=== PATIENT | female | born 1965 | race Caucasian/White ===

== ENCOUNTER 2017-06-30 02:29 | Emergency (ER) | payer MEDICAID ==
[2017-06-30 02:52] VITALS: RESP 16; O2SAT 100
[2017-06-30] MEDS ORDERED: DiphenhydrAMINE 50 mg/ml Inj IM STA (02:56)
[2017-06-30] MEDS ORDERED: DiphenhydrAMINE 50 mg/ml Inj ONE (03:02)
--- NOTE | 2017-06-30 03:21 | C.PDOC ---
History Of Present Illness Patient is a 51 y/o female who presents to the ED with a complaint of a generalized rash on her body for approximately one month. Patient states rash has intermittent outbreaks; PMD prescribed medication to no relief about a month ago. Patient notes itching worsens severely at night. Patient denies allergens, fever, or recent travel. No other complaints at this time. Time Seen by Provider: 06/30/17 02:56 Chief Complaint (Nursing): Abnormal Skin Integrity History Per: Patient History/Exam Limitations: no limitations Onset/Duration Of Symptoms: Days (symptoms began approximately one month ago. ) , Intermittent Episodes Current Symptoms Are (Timing): Still Present Quality Of Symptoms: Itching Recent travel outside of the [place]: No Past Medical History Reviewed: Historical Data, Nursing Documentation, Vital Signs Vital Signs: Last Vital Signs Temp 98 F 06/30/17 03:25 Pulse 100 H 06/30/17 03:25 Resp 16 06/30/17 03:25 BP 112/71 06/30/17 03:25 Pulse Ox 100 06/30/17 03:43 - Medical History PMH: No Chronic Diseases Denies: Chronic Kidney Disease Other Surgeries: ENDO EXCISION/DEST OF LESION OR TISSUE OF STOMACH (05/28/15) - [facility] ENDO EXCISION/DEST OF LESION OR TISSUE OF STOMACH (05/28/15) Family History: States: Unknown Family Hx - Social History Hx Tobacco Use: No Hx Alcohol Use: No Hx Substance Use: No - Immunization History Hx Tetanus Toxoid Vaccination: No Hx Influenza Vaccination: No Hx Pneumococcal Vaccination: No Review Of Systems Constitutional: Negative for: Fever Cardiovascular: Negative for: Chest Pain Respiratory: Negative for: Shortness of Breath Gastrointestinal: Negative for: Nausea Skin: Positive for: Rash (generalized on body) Physical Exam - Physical Exam Appears: Well, Non-toxic Skin: Rash (excoriations present on upper back and upper arms), Other (erythema and skin irritation scattered on back, upper extremities and interdigital areas of fingers; no hives) Head: Atraumatic, Normacephalic Eye(s): bilateral: Normal Inspection, PERRL, EOMI Nose: Normal Oral Mucosa: Moist, No Drooling Tongue: Normal Appearing, No Swelling Throat: Normal, No Erythema, No Exudate Neck: Normal, Supple Cardiovascular: Rhythm Regular Respiratory: Normal Breath Sounds, No Stridor, No Wheezing Neurological/Psych: Oriented x3, Normal Speech, Normal Cognition Gait: Steady ED Course And Treatment O2 Sat by Pulse Oximetry: 100 Progress Note: Benadryl and Prednisone administered. Disposition Counseled Patient/Family Regarding: Diagnosis, Need For Followup, Rx Given - Disposition Referrals: Ambrose Goldberg DO [[facility]] - Disposition: HOME/ ROUTINE Disposition Time: 03:18 Condition: STABLE Additional Instructions: Please follow up with PMD Continue meds as directed Return to ER if worse Prescriptions: Permethrin 5% [Permethrin 5% Cream] 60 gm EXT ONCE #1 tube predniSONE [Prednisone] 40 mg PO DAILY #8 tab Instructions: Scabies (ED), Itchy Skin (ED) Forms: [facility] (Italian) Print Language: UPPER SORBIAN - Clinical Impression Clinical Impression: Scabies, Dermatitis - Scribe Statement The provider has reviewed the documentation as recorded by the Scribe Carmella Santana All medical record entries made by the Scribe were at my direction and personally dictated by me. I have reviewed the chart and agree that the record accurately reflects my personal performance of the history, physical exam, medical decision making, and the department course for this patient. I have also personally directed, reviewed, and agree with the discharge instructions and disposition.
[2017-06-30 03:26] VITALS: BP 112/71; PULSE 100; TEMP 98
== END 2017-06-30 03:39 | disposition home or self-care (01) ==
LOC: C.ER 02:29
DX: B86 Scabies (principal); L30.9 Dermatitis, unspecified
CPT/HCPCS: 96372; 99283; J1200